=== PATIENT | female | born 1930 | race Two or more races ===

== ENCOUNTER 2018-04-01 00:51 | Inpatient (IN) | payer MEDICARE, OTHER ==
[~2018-04-01] VITALS: Ht 162.6 cm; Wt 63.5 kg
--- NOTE | 2018-04-01 00:58 | NUR ---
DR LORRI FAIRCHILD MD AT BEDSIDE FOR MSE.
[2018-04-01] MEDS ORDERED: IV NORMAL SALINE 500 ML BAG IV ONE ×2 (01:00→02:00)
[2018-04-01] MEDS ORDERED: FURO-151 PO (01:16)
[2018-04-01] MEDS ORDERED: MIRA50TA PO (01:16)
[2018-04-01] MEDS ORDERED: AMLO10TA2 PO (01:16)
[2018-04-01] MEDS ORDERED: METH1TAB PO (01:16)
[2018-04-01] MEDS ORDERED: BISA10SU8 RC (01:16)
[2018-04-01] MEDS ORDERED: [UNRECOGNIZED DRUG - REMARK] (01:16)
[2018-04-01] MEDS ORDERED: MELA3TAB52 PO (01:16)
[2018-04-01] MEDS ORDERED: ASPI-1094 PO (01:16)
[2018-04-01] MEDS ORDERED: LACT10SO7 PO (01:16)
[2018-04-01] MEDS ORDERED: DULO30CA51 PO (01:16)
[2018-04-01] MEDS ORDERED: MULT1TAB11 PO (01:16)
[2018-04-01] MEDS ORDERED: CALCIUM VITAMIN D (01:16)
[2018-04-01] MEDS ORDERED: INSU100V7 SQ (01:16)
[2018-04-01] MEDS ORDERED: LINA5TAB PO (01:16)
[2018-04-01] MEDS ORDERED: NITR0.4T SL (01:16)
[2018-04-01] MEDS ORDERED: ALPR0.25 PO (01:16)
[2018-04-01] MEDS ORDERED: TRAM50TA2 PO (01:17)
[2018-04-01] MEDS ORDERED: ACET-2154 PO (01:17)
[2018-04-01] MEDS ORDERED: PROT946L PO (01:17)
[2018-04-01] MEDS ORDERED: ASCO500C18 PO (01:17)
[2018-04-01] MEDS ORDERED: PANT40TA4 PO (01:17)
[2018-04-01] MEDS ORDERED: POTA20TA83 PO (01:17)
--- NOTE | 2018-04-01 01:20 | NUR ---
RADIOLOGY AT BEDSIDE FOR XRAY.
[2018-04-01 01:33] LABS: BASOPHILS # (AUTO) 0.1 K/uL (0.0-8.0); EOSINOPHILS # (AUTO) 0.2 K/uL (0.0-0.7); EOSINOPHILS % (AUTO) 4.2 % (0.0-7.0); HEMATOCRIT 34.9 % (31.2-41.9); HEMOGLOBIN 11.7 g/dL (10.9-14.3); LYMPHOCYTES # (AUTO) 2.1 K/uL (20.0-40.0); LYMPHOCYTES % (AUTO) 37.4 % (20.5-51.5); MEAN CORPUSCULAR HEMOGLOBIN 28.6 uug (24.7-32.8); MEAN CORPUSCULAR HGB CONC 34 g/dL (32.3-35.6); MEAN CORPUSCULAR VOLUME 85.2 fL (75.5-95.3); MONOCYTES # (AUTO) 0.4 K/uL (2.0-10.0); NEUTROPHILS # (AUTO) 2.8 K/uL (1.8-8.9); NEUTROPHILS % (AUTO) 50.4 % (38.5-71.5); PLATELET COUNT (AUTO) 156 K/uL (179-408); RED BLOOD CELL COUNT(AUTO) 4.09 MIL/uL (3.63-4.92); WHITE BLOOD COUNT (AUTO) 5.6 K/uL (3.8-11.8)
[2018-04-01 01:39] LABS: *BILIRUBIN,URIN NEGATIVE (NEGATIVE); *BLOOD, URINE 2+ (NEGATIVE); *CLARITY,URINE CLOUDY (CLEAR); *COLOR,URINE YELLOW (YELLOW); *KETONES,URINE NEGATIVE (NEGATIVE); *PROTEIN,URINE NEGATIVE (NEGATIVE); *UROBILINOGEN,URINE 0.2 E.U./dl (NORMAL); LEUKOCYTE ESTERASE ,URINE 1+ (NEGATIVE); NITRITE, URINE NEGATIVE (NEGATIVE)
[2018-04-01 01:40] LABS: UGLUCOSE 2+ (NEGATIVE)
[2018-04-01 01:43] LABS: ALANINE AMINOTRANSFERASE 26 U/L (14-59); ALKALINE PHOSPHATASE 131 U/L (50-136); ASPARTATE AMINOTRANSFERASE 39 U/L (15-37); BILIRUBIN,DIRECT 0.4 mg/dL (0.0-0.2); CARBON DIOXIDE 30 mmol/L (21-32); CHLORIDE 103 mmol/L (98-107); CREATININE 1.3 mg/dL (0.6-1.3); POTASSIUM 3.6 mmol/L (3.5-5.1); TOTAL PROTEIN, SERUM 7.4 g/dL (6.4-8.2); UREA NITROGEN, BLOOD 30 mg/dL (7-18)
[2018-04-01 01:44] LABS: GLUCOSE 374 mg/dL (74-106)
[2018-04-01 01:54] LABS: BACTERIA,URINE FEW /HPF (NONE SEEN); SQUAMOUS EPITHELIAL CELL,UR MODERATE /HPF (NONE SEEN); WBC,URINE 20-50 /HPF (0-3); YEAST,URINE MANY /HPF (NONE SEEN)
[2018-04-01] MEDS ORDERED: INSULIN REGULAR, HUMAN 300 UNIT/3 ML VIAL ONE (01:58)
[2018-04-01] MEDS ORDERED: CEFTRIAXONE 1 G VIAL ONE (01:58)
[2018-04-01] MEDS ORDERED: INSULIN REGULAR, HUMAN 1,000 UNITS/10 ML VIAL SUBCUT ONE (02:00)
[2018-04-01] MEDS ORDERED: IV NORMAL SALINE 1000 ML BAG IV ONE (02:00)
[2018-04-01] MEDS ORDERED: CEFTRIAXONE 1 G in IV DEXTROSE 5% 50 ML IV ONE (02:00)
--- NOTE | 2018-04-01 02:18 | NUR ---
DR BLACKMON SPEAKING TO DR RAMIREZ REGARDING PT ADMISSION.
--- NOTE | 2018-04-01 02:57 | NUR ---
Pt. admitted to TELE, under care of Dr. RAMIREZ Belongs List completed
--- NOTE | 2018-04-01 02:57 | NUR ---
REPORT GIVEN TO FLOOR RN.
--- NOTE | 2018-04-01 03:09 | NUR ---
PT ARRIVED IN TELEMETRY UNIT SINUS RHYTHM IN NO ACUTE DISTRESS. NO S/S OF HYPER/HYPOGLYCEMIA. PT A/O TO SELF AND . DENIES ANY PAIN OR SOB. AWAITING ADMITTING ORDERS. FAMILY AT BEDSIDE ASSISTING WITH TRANSLATION FROM [place] TO [place]. BP 151/57 P 76 RR 18 O2 100% T 98.6. PT COMPLETING IV NS FROM ER AT THIS TIME. BED ALARM ON AND CALL LIGHT PLACED WITHIN REACH.
[2018-04-01 03:40] VITALS: BP 151/57
--- NOTE | 2018-04-01 04:15 | NUR ---
FOLLOW UP PHONE CALL MADE TO DR FARAHMANDIAN. TLELO STATED HE WILL PUT ADMITTING ORDERS IN THE COMPUTER.
[2018-04-01] MEDS ORDERED: Z GUARD REMEDY PASTE 57 GM TUBE TOP PRN (06:00)
[2018-04-01] MEDS ORDERED: MAGNESIUM HYDROXIDE 30 ML LIQUID UDC PO PRN (06:00)
[2018-04-01] MEDS ORDERED: ACETAMINOPHEN 325 MG TABLET PO PRN (06:00)
[2018-04-01] MEDS ORDERED: ONDANSETRON 4 MG/2 ML VIAL IV PRN (06:00)
[2018-04-01] MEDS ORDERED: ZOLPIDEM 5 MG TABLET PO PRN (06:00)
[2018-04-01] MEDS ORDERED: ALPRAZOLAM 0.25 MG TABLET PO PRN (06:15)
[2018-04-01] MEDS ORDERED: BISACODYL 10 MG SUPP.RECT RC SCH (06:15)
[2018-04-01] MEDS ORDERED: TRAMADOL HCL 50 MG TABLET PO PRN (06:15)
[2018-04-01] MEDS ORDERED: DEXTROSE 50% 50 ML DISP.SYRIN IV PRN (06:15)
[2018-04-01] MEDS ORDERED: NITROGLYCERIN 0.4 MG/TAB BOTTLE SL PRN (06:15)
[2018-04-01] MEDS ORDERED: PANTOPRAZOLE SODIUM 40 MG TABLET.DR PO SCH (07:00)
[2018-04-01] MEDS: BLOOD SUGAR DIAGNOSTIC 1 EACH STRIP VI SCH ×4 (07:38→21:24)
[2018-04-01] MEDS: DULOXETINE 30 MG CAPSULE.DR PO SCH (08:13)
[2018-04-01] MEDS: LACTULOSE 20 G/30 ML LIQUID UDC PO SCH ×3 (08:14→16:21)
[2018-04-01] MEDS: ASPIRIN 81 MG TAB.CHEW PO SCH (08:14)
[2018-04-01] MEDS: ENOXAPARIN SODIUM 30 MG/0.3 ML DISP.SYRIN SUBCUT SCH (08:16)
[2018-04-01] MEDS: INSULIN REGULAR, HUMAN 300 UNIT/3 ML VIAL SQ PRN ×3 (08:17→16:23)
[2018-04-01] MEDS: LINAGLIPTIN 5 MG TABLET PO SCH (08:21)
[2018-04-01] MEDS: PANTOPRAZOLE ORAL SUSPENSION 40 MG SUSPDR.PKT PO SCH (08:22)
[2018-04-01] MEDS: AMLODIPINE 10 MG TABLET PO SCH (08:23)
[2018-04-01] MEDS ORDERED: POTASSIUM CHLORIDE 20 MEQ TAB.PRT.SR PO SCH (09:00)
[2018-04-01 12:00] VITALS: BP 134/48
--- NOTE | 2018-04-01 12:41 | NUR ---
WOUND CARE CONSULT: PT PRESENTS WITH FRAGILE BUT INTACT SKIN. BRUISING NOTED TO ARMS AND DARK STAINING NOTED TO LOWER LEGS. WILL SEE PRN. PT ON FIRST STEP MATTRESS. ORALIA PERDUE IN USE. IN AGREEMENT WITH PLAN OF CARE. CURRENT ADRIANE SCORE IS 11. Addendum: 04/01/18 at 1242 by MIGUEL VIRAMONTES RN ALL SKIN PROTECTION MEASURES IN PLACE AND DISCUSSED WITH NURSING STAFF.
[2018-04-01 15:38] VITALS: BP 130/46
--- NOTE | 2018-04-01 18:32 | NUR ---
PT IS RESTING IN BED WITH FAMILY AT BEDSIDE. PT HAS NO SIGNS OF RESPIRATORY DISTRESS. CALM, BREATHING EQUALLY. CONTINUE TO MONITOR PT.
[2018-04-01] MEDS: IV 1/2NS 1000 ML 1,000 ML IV PRN (21:04)
[2018-04-01 21:16] VITALS: BP 135/50
[2018-04-01] MEDS: INSULIN GLARGINE,HUM 300 UNITS/3 ML CARTRIDGE SQ SCH (21:23)
[2018-04-01] MEDS: INSULIN REGULAR, HUMAN 300 UNITS/3 ML VIAL SQ PRN (21:25)
[2018-04-01] MEDS: CEFTRIAXONE 1 G in IV DEXTROSE 5% 50 ML IV SCH (23:04)
[2018-04-02 06:11] LABS: BASOPHILS % (AUTO) 0.9 % (0.0-2.0); EOSINOPHILS # (AUTO) 0.3 K/uL (0.0-0.7); EOSINOPHILS % (AUTO) 4.9 % (0.0-7.0); LYMPHOCYTES # (AUTO) 1.7 K/uL (20.0-40.0); LYMPHOCYTES % (AUTO) 32.6 % (20.5-51.5); MEAN CORPUSCULAR HEMOGLOBIN 29.1 uug (24.7-32.8); MEAN CORPUSCULAR HGB CONC 34 g/dL (32.3-35.6); MEAN CORPUSCULAR VOLUME 84.8 fL (75.5-95.3); MONOCYTES # (AUTO) 0.3 K/uL (2.0-10.0); MONOCYTES % (AUTO) 6.1 % (0.0-11.0); NEUTROPHILS # (AUTO) 2.8 K/uL (1.8-8.9); NEUTROPHILS % (AUTO) 55.5 % (38.5-71.5); PLATELET COUNT (AUTO) 119 K/uL (179-408); RED BLOOD CELL COUNT(AUTO) 3.35 MIL/uL (3.63-4.92); WHITE BLOOD COUNT (AUTO) 5.1 K/uL (3.8-11.8)
[2018-04-02 06:18] LABS: ALANINE AMINOTRANSFERASE 25 U/L (14-59); ALKALINE PHOSPHATASE 112 U/L (50-136); ASPARTATE AMINOTRANSFERASE 36 U/L (15-37); BILIRUBIN,TOTAL 0.8 mg/dL (0.2-1.0); CARBON DIOXIDE 29 mmol/L (21-32); CHLORIDE 105 mmol/L (98-107); CHOLESTEROL 104 mg/dL (<200); GLUCOSE 214 mg/dL (74-106); HDL CHOLESTEROL 34 mg/dL (40-60); MAGNESIUM 1.4 mg/dL (1.8-2.4); PHOSPHOROUS 2.8 mg/dL (2.5-4.9); POTASSIUM 3.6 mmol/L (3.5-5.1); TOTAL PROTEIN, SERUM 6.2 g/dL (6.4-8.2); TRIGLYCERIDES 121 MG/DL (30-150); UREA NITROGEN, BLOOD 18 mg/dL (7-18)
[2018-04-02] MEDS: PANTOPRAZOLE ORAL SUSPENSION 40 MG SUSPDR.PKT PO SCH (06:23)
[2018-04-02] MEDS: BLOOD SUGAR DIAGNOSTIC 1 EACH STRIP VI SCH ×4 (06:24→20:56)
[2018-04-02 06:26] VITALS: BP 136/48
[2018-04-02 06:38] LABS: HEMATOCRIT 28.4 % (31.2-41.9); HEMOGLOBIN 9.8 g/dL (10.9-14.3)
[2018-04-02] MEDS: INSULIN REGULAR, HUMAN 300 UNIT/3 ML VIAL SQ PRN ×3 (08:01→17:15)
[2018-04-02] MEDS: ENOXAPARIN SODIUM 30 MG/0.3 ML DISP.SYRIN SUBCUT SCH (08:02)
[2018-04-02] MEDS: DULOXETINE 30 MG CAPSULE.DR PO SCH (08:39)
[2018-04-02] MEDS: LINAGLIPTIN 5 MG TABLET PO SCH (08:39)
[2018-04-02] MEDS: ASPIRIN 81 MG TAB.CHEW PO SCH (08:39)
[2018-04-02] MEDS: LACTULOSE 20 G/30 ML LIQUID UDC PO SCH ×3 (08:39→17:16)
[2018-04-02] MEDS: AMLODIPINE 10 MG TABLET PO SCH (08:40)
[2018-04-02] MEDS ORDERED: MAGNESIUM SULFATE/D5W 100 ML IV SCH (10:45)
--- NOTE | 2018-04-02 10:59 | NUR ---
DR JIMÉNEZ HERE TO SEE AND EXAMINED PATIENT MAG LEVEL IS 1.4 WITH NEW ORDERS AND NOTED.
[2018-04-02 11:44] VITALS: BP 133/46
--- NOTE | 2018-04-02 13:58 | NUR ---
PATIENT HAD A BOWEL MOVEMENT STOOL OBTAINED AND SENT TO THE LAB ORDERED
[2018-04-02 14:04] LABS: *OCCULT BLOOD STOOL NEGATIVE (NEGATIVE)
[2018-04-02] MEDS: FLUCONAZOLE 100 MG TABLET PO SCH (14:56)
[2018-04-02 16:13] VITALS: BP 130/49
--- NOTE | 2018-04-02 17:48 | NUR ---
RESTING FAMILY AT THE BEDSIDE MAXIMUM ASSISTANCE GIVEN NEEDED MADE COMFORTABLE AND WILL CONTINUE TO OBSERVE PATIENT.
[2018-04-02] MEDS: IV 1/2NS 1000 ML 1,000 ML IV PRN (18:11)
--- NOTE | 2018-04-02 19:30 | NUR ---
Received patient laying comfortably in bed. Family at bedside. On specialty mattress. No acute distress noted. A/O x 1. Latvian speaking only. On O2 2L NC. Noted multiple bruises on bilateral upper arms. Carrasco draining clear and yellow urine. Noted discoloration of bilateral lower extremities. Safety initiated. Call light within reach. Will continue to monitor.
[2018-04-02 20:05] VITALS: BP 145/43
[2018-04-02] MEDS: INSULIN REGULAR, HUMAN 300 UNITS/3 ML VIAL SQ PRN (20:59)
[2018-04-02] MEDS: INSULIN GLARGINE,HUM 300 UNITS/3 ML CARTRIDGE SQ SCH (21:00)
[2018-04-02] MEDS: Z GUARD REMEDY PASTE 57 GM TUBE TOP SCH (21:00)
[2018-04-03] MEDS: CEFTRIAXONE 1 G in IV DEXTROSE 5% 50 ML IV SCH (00:23)
[2018-04-03 04:00] VITALS: BP 137/41
--- NOTE | 2018-04-03 05:38 | NUR ---
Patient slept intermittently t/o shift. Daughter at bedside. Patient remains on O2 2L NC. IVF infusing on the left hand. Patent and intact. Noted bilateral upper ext. bruising and lower ext. discoloration. Urinating ok. Carrasco draining yellow and clear urine. Vital signs stable. Turn and repositioned Q2H, heels kept afloat. All meds given with no adverse effects. All needs met. Safety and comfort measures maintained t/o shift.
[2018-04-03] MEDS: PANTOPRAZOLE ORAL SUSPENSION 40 MG SUSPDR.PKT PO SCH (06:31)
[2018-04-03] MEDS: BLOOD SUGAR DIAGNOSTIC 1 EACH STRIP VI SCH ×2 (06:31→12:10)
[2018-04-03 06:43] LABS: IRON, SERUM 58 ug/dL (50-175)
[2018-04-03] MEDS: INSULIN REGULAR, HUMAN 300 UNIT/3 ML VIAL SQ PRN ×2 (07:51→12:07)
[2018-04-03] MEDS: DULOXETINE 30 MG CAPSULE.DR PO SCH (08:53)
[2018-04-03] MEDS: LINAGLIPTIN 5 MG TABLET PO SCH (08:53)
[2018-04-03] MEDS: LACTULOSE 20 G/30 ML LIQUID UDC PO SCH ×2 (08:53→12:10)
[2018-04-03] MEDS: ASPIRIN 81 MG TAB.CHEW PO SCH (08:54)
[2018-04-03] MEDS: AMLODIPINE 10 MG TABLET PO SCH (08:54)
[2018-04-03] MEDS: ENOXAPARIN SODIUM 30 MG/0.3 ML DISP.SYRIN SUBCUT SCH (08:55)
[2018-04-03] MEDS: Z GUARD REMEDY PASTE 57 GM TUBE TOP SCH (08:56)
--- NOTE | 2018-04-03 10:00 | NUR ---
DR JIMÉNEZ HERE AND SEEN PATIENT WITH ORDER TO DISCHARGE PATIENT TO [facility] WELFARE INVESTIGATOR AWARE AND STATED THAT SHE WILL CALL [facility] FOR BED AVAILABILITY.
[2018-04-03 11:06] LABS: VIT D, 25-HYDROXY 51.4 ng/mL (30.0-100.0)
[2018-04-03 11:17] VITALS: BP 141/47
[2018-04-03] MEDS ORDERED: MENT71OI TOP (11:24)
[2018-04-03] MEDS ORDERED: Insulin Glargine,Hum SQ (11:24)
--- NOTE | 2018-04-03 13:00 | NUR ---
ADVERTISING DIRECTOR STATED THAT [facility] WILL BE ABLE TO TAKE PATIENT TODAY
[2018-04-03] MEDS: FLUCONAZOLE 100 MG TABLET PO SCH (14:29)
--- NOTE | 2018-04-03 15:14 | NUR ---
CALLED [facility] AND REPORT GIVEN TO NADIA FOR CONTINUING CARE.PATIENTS DAUGHTER TRACE IS AWARE OF DISCHARGE TO [facility] TODAY.
[2018-04-03 15:21] VITALS: BP 143/47
--- NOTE | 2018-04-03 16:00 | NUR ---
PATIENT DISCHARGED PICKED UP BY AMBULANCE IN SATISFACTORY CONDITION PATIENT HAS NO PERSONAL BELONGINGS AT THIS TIME.[place]OCK DISCONTINUED.
[2018-04-05 13:06] LABS: CALCITRIOL VIT D,1,25 DIHYDROX 29.7 pg/mL (19.9-79.3)
== END 2018-04-03 15:37 | DRG 757 ==
LOC: ER 00:57 → TELE 02:20 → MED 11:11
PROVIDERS: ADMIT Internal Medicine; ATTEND Internal Medicine
DX: B37.49 Other urogenital candidiasis (principal); G92 Toxic encephalopathy; E44.0 Moderate protein-calorie malnutrition; E11.65 Type 2 diabetes mellitus with hyperglycemia; I50.9 Heart failure, unspecified; E83.52 Hypercalcemia; Z79.4 Long term (current) use of insulin; Z96.642 Presence of left artificial hip joint; Z66 Do not resuscitate; Z68.24 Body mass index [BMI] 24.0-24.9, adult; I11.0 Hypertensive heart disease with heart failure; K21.9 Gastro-esophageal reflux disease without esophagitis; Z91.81 History of falling; Z87.440 Personal history of urinary (tract) infections; E86.0 Dehydration
CPT/HCPCS: 36415; 70030-TC; 71045; 82306; 82652; 83550; 83605; 83690; 83735; 83970; 84100; 85025; 85730; 87040; 87086; 93005; 97165; A4663; J0696; J1650; J1815; J3475; J3490; J7030; J7060